=== PATIENT | male | born 1970 | race Caucasian/White ===

== ENCOUNTER → 2024-02-11 | Outpatient (CLI) | payer BC ==
[2024-02-11 16:15] VITALS: BP 111/80; PULSE 68; RESP 16; TEMP 97.9
--- NOTE | 2024-02-11 17:09 | P.SLEEP ---
History of Present Illness H&P Date: 02/11/24 53-year-old male patient, coming in due to concerns of snoring. 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 He has been sleeping in a separate bedroom as he has been a loud snorer and the is unable to sleep next to him. He does have some limited tiredness and fatigue during the day. He goes to bed around midnight and wakes up between 6 and 8 AM in the morning. Average is around 6 to 8 hours of sleep. He has occasional nighttime arousals due to urination. He grinds his teeth. His weight has been stable over the years and the patient has no recent weight gain. Does not take any naps during the day. Drinks around 2-3 caffeinated beverages on a daily basis. No head trauma. No sleep paralysis. Hallucinations. No cataplexy. Sleeps on his side. He is a nose breather. His [place] score is at 9. His main concern remains to snore. No other major comorbidities. Review of Systems Constitutional: Reports fatigue Eyes: denies as per HPI, denies blurred vision, denies bulging eye, denies decreased vision, denies diplopia, denies discharge, denies dry eye, denies irritation, denies itching, denies pain, denies photophobia, denies loss of peripheral vision, denies loss of vision, denies tunnel vision/blind spots Ears: deny: decreased hearing, ear discharge, earache, tinnitus Ears, nose, mouth and throat: Reports as per HPI Breasts: absent: as per HPI, gynecomastia Cardiovascular: Reports as per HPI Respiratory: Reports snoring Gastrointestinal: Reports as per HPI Genitourinary: Reports as per HPI Musculoskeletal: Reports as per HPI Musculoskeletal: absent: ankle pain, ankle stiffness, ankle swelling, as per HPI, elbow pain, elbow stiffness, elbow swelling, foot pain, foot stiffness, foot swelling, hand pain, hand stiffness, hand swelling, hip pain, hip stiffness, hip swelling, knee pain, knee stiffness, knee swelling, shoulder pain, shoulder stiffness, shoulder swelling, wrist pain, wrist stiffness, wrist swelling Integumentary: Reports as per HPI Neurological: Reports as per HPI Psychiatric: Reports as per HPI Endocrine: Reports as per HPI Hematologic/Lymphatic: Reports as per HPI Past Medical History Past Medical History: No Reported History History of Any Multi-Drug Resistant Organisms: None Reported Past Surgical History: No Surgical Hx Reported Additional Past Surgical History / Comment(s): colonoscopy Past Psychological History: No Psychological Hx Reported Smoking Status: Never smoker Past Alcohol Use History: None Reported Past Drug Use History: None Reported Physical Exam Vitals: Vital Signs Temp Pulse Resp BP Pulse Ox 02/11/24 16:14 97.9 F 68 16 111/80 95 The patient appeared well nourished and normally developed. Vital signs as documented. Head exam is unremarkable. No scleral icterus or corneal arcus noted. Neck is without jugular venous distension, thyromegaly, or carotid bruits. The patient is a Mallampati class III. The patient has some mild tonsillar enlargement. Carotid upstrokes are brisk bilaterally. Lungs are clear to auscultation and percussion. Cardiac exam reveals the PMI to be normally sized and situated. Rhythm is regular. First and second heart sounds normal. No murmurs, rubs or gallops. Abdominal exam reveals normal bowel sounds, no masses, no organomegaly and no aortic enlargement. Extremities are nonedematous and both femoral and pedal pulses are normal. Examination of the skin revealed no evidence of significant rashes, suspicious appearing nevi or other concerning lesions. Neurologically, the patient is awake and alert and the patient does not have any focal neurological deficit. Cranial nerves are essentially intact. Assessment and Plan Plan: Log chronic snoring. This is a 53-year-old male patient was coming in with main concerns of snoring. He does have some features of obstructive sleep apnea and he has limited fatigue and sleepiness and his [place] score is at 9. Body mass index is 30.6. No nasal obstruction and the patient has been a nose breather. No tonsillar enlargement. No recent weight gain. No alcohol consumption in excess. No sinus allergies Mild hypersomnia with an [place] score of 9 Body mass index of 30.6. Plan Will proceed with home sleep study to evaluate the patient for an underlying obstructive sleep apnea. Based on those results, we will make further recommendations on various treatment options. I discussed with him at length the available treatment options for sleep apnea including CPAP therapy, oral appliance, etc. At the same time, he was encouraged to lose weight. He was encouraged to sleep on his side with the head of the bed elevated and not drink any alcoholic beverages at least 3 hours prior to going to bed. No sinus allergies. No significant anatomic abnormalities involving the nasal passages. No history of any nasal polyps. No major overbite. Will make a final decision on treatment options based on the results of the home sleep study. Sleep Note - Sleep Data ESS Total: 9 - Sleep Note Sleep Note: Temperature: 97.9 F Pulse Rate: 68 Respiratory Rate: 16 Blood Pressure: 111/80 SpO2: 95 Height: Weight: BMI: Neck Circumference: 15.7
== END ==
LOC: 3 N SLEEP 13:56
PROVIDERS: ATTEND Internal Medicine Critical Care Medicine
DX: G47.10 Hypersomnia, unspecified (principal); R06.83 Snoring; R53.83 Other fatigue
CPT/HCPCS: 99202

== ENCOUNTER → 2024-02-17 | Outpatient (CLI) | payer BC ==
--- NOTE | 2024-02-24 00:45 | P.PCN ---
Date of Procedure: 02/24/24 Operative Findings: Home Sleep study Date of study is 02/17/2024 53-year-old male patient, coming in due to concerns of snoring. 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 He has been sleeping in a separate bedroom as he has been a loud snorer and the is unable to sleep next to him. He does have some limited tiredness and fatigue during the day. He goes to bed around midnight and wakes up between 6 and 8 AM in the morning. Average is around 6 to 8 hours of sleep. He has occasional nighttime arousals due to urination. He grinds his teeth. His weight has been stable over the years and the patient has no recent weight gain. Does not take any naps during the day. Drinks around 2-3 caffeinated beverages on a daily basis. No head trauma. No sleep paralysis. Hallucinations. No cataplexy. Sleeps on his side. He is a nose breather. His [place] score is at 9. His main concern remains to snore. No other major comorbidities. Technical description The Futon system was used to complete his home sleep study. Is a type III home sleep study. Total recording duration was 8 hours and 44 minutes. The study started 10:25 PM and ended at 7:09 AM. There was a total of 6 hours and 28 minutes of flow monitoring and 8 hours and 29 minutes of oxygen saturation monitoring. Results respiratory analysis showed a total of 31 obstructive apneas and 87 obstructive hypopneas and the resulting AHI was 18.7, worsened in supine body position with an AHI of 31.4 while supine Oxygenation analysis The baseline pulse ox while awake was 97%, average pulse ox during sleep was 93% and the patient at the lowest pulse ox of 79%. The patient spent around 9 minutes of sleep time below pulse ox of 89% Cardiac summary Average heart rate was 55 with a minimum heart rate of 45 and a maximum heart rate of 87 Assessment Obstructive sleep apnea, moderate in severity with an AHI of 18.2, worsening supine body position with an AHI of 31.4 while supine Minimal neck collection saturation chronic snoring Limited fatigue and sleepiness and his [place] score is at 9. Body mass index is 30.6. No nasal obstruction and the patient has been a nose breather. No tonsillar enlargement. No recent weight gain. No alcohol consumption in excess. No sinus allergies Plan Will contact the patient and discuss treatment options. He has moderately severe MIKKI and has some fatigue and sleepiness with an [place] score of 9. Will discuss treatment options. Obviously, CPAP therapy is favored. Alternatives could be positional therapy in combination with an appliance. Encourage weight loss. Continue to follow.
== END ==
LOC: 3 N SLEEP 16:44
PROVIDERS: ATTEND Internal Medicine Critical Care Medicine
DX: G47.33 Obstructive sleep apnea (adult) (pediatric) (principal); R53.83 Other fatigue

== ENCOUNTER 2024-04-07 19:58 | Outpatient (CLI) | payer BC ==
--- NOTE | 2024-04-12 14:15 | P.PCN ---
Date of Procedure: 04/07/24 Operative Findings: CPAP titration report Date of service is 04/07/2024 Pertinent history 53-year-old male patient, coming in due to concerns of snoring. 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 He has been sleeping in a separate bedroom as he has been a loud snorer and the is unable to sleep next to him. He does have some limited tiredness and fatigue during the day. He goes to bed around midnight and wakes up between 6 and 8 AM in the morning. Average is around 6 to 8 hours of sleep. He has occasional nighttime arousals due to urination. He grinds his teeth. His weight has been stable over the years and the patient has no recent weight gain. Does not take any naps during the day. Drinks around 2-3 caffeinated beverages on a daily basis. No head trauma. No sleep paralysis. Hallucinations. No cataplexy. Sleeps on his side. He is a nose breather. His [place] score is at 9. His main concern remains to snore. No other major comorbidities. The patient underwent a home sleep study and the patient was found to have moderate to severe obstructive sleep apnea with an AHI of 18 worsening supine body position with an AHI of 31.4. Based on that, the patient was asked to come into the sleep center to undergo a CPAP titration Physical findings The patient's body mass index is 30.7 with a weight of 220 pounds Technical description The patient was studied using a standard complex polysomnography protocol that included recording of the 2 EKG, Central, occipital and frontal EEG, right and left outer canthus EOG, submental EMG, right and left anterior tibialis EMG, respiratory airflow by thermocouple and or pressure/flow transducer, respiratory efforts by abdominal and thoracic PVDF belts, oxygen saturation by cable oximetry. Position by observation synchronized the PSG. Stepwise CPAP titration was done to eliminate all obstructive respiratory events. Equipment used: Xetawave. Sleep characteristics The total recording duration was 411.5 minutes. The total sleep time was 289.5 minutes. The wake after sleep onset time was 98 minutes. The overall sleep efficiency was 70.4 minutes. The latency to sleep onset was 23.5 minutes. The latency to REM sleep was 149.5 minutes. The sleep architecture was catheterized by 6.6% stage I, 72.5% stage II, 0.3% stage III, 20.6% REM sleep. The total arousal index was 13.5 CPAP titration summary CPAP titration was started initially at a pressure of 4 cm of water and pressure was gradually increased maintenance of 1 cm to reach a maximum CPAP pressure of 8 cm of water. This was successful titration. The patient was studied in all sleep stages including REM sleep. Study was done and supine and nonsupine body positions. At the completion of the titration, there was completed ablation of the obstructive respiratory events without any significant nocturnal oxygen saturations Sleep continuity summary The patient had total of 65 arousals with an index of 17.5. The respiratory arousal index was 0.2 Periodic limb movements The patient had a total of 61 periodic limb movements with an index of 12.6. Periodic limb movements with arousals were 12 with an index of 2.5 Cardiac summary The average heart rate was 55 with a minimum heart rate of 53 and a maximum heart rate of 59 Assessment Obstructive sleep apnea, moderate in severity with an AHI of 18.2, worsening supine body position with an AHI of 31.4 while supine, and the patient underwent a successful CPAP titration. Minimal nocturnal oxygen de saturation, recovered with CPAP therapy chronic snoring Limited fatigue and sleepiness and his [place] score is at 9. Body mass index is 30.6. Nasal obstruction and the patient has been a nose breather. No tonsillar enlargement. No recent weight gain. No alcohol consumption in excess. No sinus allergies Plan Initiate CPAP therapy at a pressure of 8 cm of water with a C-Flex of 3 We will offer the patient an AirFit P10 medium size nasal pillows See me back in office in 30 to 90 days to assess clinical response and compliancy and will continue to follow.
== END 2024-04-08 06:00 | disposition home or self-care (01) ==
LOC: 3 N SLEEP 19:58
PROVIDERS: ATTEND Internal Medicine Critical Care Medicine
DX: G47.33 Obstructive sleep apnea (adult) (pediatric) (principal); G47.36 Sleep related hypoventilation in conditions classified elsewhere; G47.52 REM sleep behavior disorder; J34.89 Other specified disorders of nose and nasal sinuses; R53.83 Other fatigue
CPT/HCPCS: 95811